=== PATIENT | female | born 1955 | race Caucasian/White ===

== ENCOUNTER 2022-01-19 22:27 | Emergency (ER) | payer BC ==
[~2022-01-19] VITALS: Ht 154.9 cm; Wt 109.1 kg
[2022-01-19 22:28] VITALS: BP 220/100
== END 2022-01-20 00:35 | disposition left against medical advice (07) ==
LOC: M ED 22:27
DX: Z53.21 Procedure and treatment not carried out due to patient leaving prior to being seen by health care provider (principal)